=== PATIENT | male | born 1965 | race Caucasian/White ===

== ENCOUNTER 2017-07-21 10:41 | Emergency (ER) | payer MEDICARE ==
[2017-07-21 11:14] VITALS: BP 145/83
== END 2017-07-21 14:30 | disposition left against medical advice (07) ==
LOC: ED 10:41
DX: M79.605 Pain in left leg (principal); Z53.21 Procedure and treatment not carried out due to patient leaving prior to being seen by health care provider

== ENCOUNTER 2017-07-23 17:47 | Emergency (ER) | payer SELFPAY ==
[2017-07-23 18:26] VITALS: BP 137/80
[2017-07-23 18:47] LABS: Hematocrit 37.4 % (35.5-45.6); Hemoglobin 12.1 gm/dl (11.8-15.2); Mean Corpuscular HGB Conc 32 % (32-34); Mean Corpuscular Hemoglobin 29 pg (28-32); Mean Corpuscular Volume 91 fl (84-94); Platelet Count 271 K/mm3 (140-440); Red Blood Count 4.11 M/mm3 (3.65-5.03); Red Cell Distribution Width 14.5 % (13.2-15.2); White Blood Count 6.9 K/mm3 (4.5-11.0)
[2017-07-23 19:05] LABS: Anion Gap 17 mmol/L; BUN/Creatinine Ratio 9; Blood Urea Nitrogen 9 mg/dL (9-20); Calcium 8.4 mg/dL (8.4-10.2); Carbon Dioxide 26 mmol/L (22-30); Glucose 148 mg/dL (75-100); Potassium 4.1 mmol/L (3.6-5.0); Sodium 141 mmol/L (137-145)
--- NOTE | 2017-07-23 19:56 | XRay Report ---
FINAL REPORT EXAM: XR TIBIA FIBULA 2V LT HISTORY: left lower leg wound/osteomyelitis TECHNIQUE: AP and lateral views of the left tibia and fibula. Radiographic marker was placed over the lateral aspect of the upper calf. PRIORS: None. FINDINGS: There is no evidence for acute fracture or dislocation. There is subcutaneous soft tissue swelling in the area of clinical concern involving the lateral aspect of the upper calf. No underlying bony abnormality in this area is seen. No evidence for periosteal reaction, focal lucency, or cortical erosion is present. No air in the soft tissues is seen. No radiopaque foreign bodies are seen. Bony mineralization is normal and joint spaces are maintained. IMPRESSION: No acute bony abnormality noted. Soft tissue swelling in the area of clinical concern overlying the lateral soft tissues of the left calf.
[2017-07-23 20:11] LABS: Bilirubin,Urine NEG (Negative); Blood,Urine NEG (Negative); Ketones,Urine TR mg/dL (Negative); Leukocyte Esterase,Urine NEG (Negative); Mucus,Urine 2+ /HPF; Nitrite,Urine NEG (Negative); Protein,Urine <15 mg/dL mg/dL (Negative)
== END 2017-07-24 20:20 | disposition left against medical advice (07) ==
LOC: ED 17:47
DX: M79.605 Pain in left leg (principal); Z53.21 Procedure and treatment not carried out due to patient leaving prior to being seen by health care provider
CPT/HCPCS: 36415; 80048; 81001; 82140; 85027

== ENCOUNTER 2017-09-11 14:37 | Emergency (ER) | payer SELFPAY ==
[2017-09-11 15:48] VITALS: BP 167/101
[2017-09-11 16:13] LABS: Basophils % (Auto) 0.6 % (0.0-1.8); Eosinophils # (Auto) 0.1 K/mm3 (0.0-0.4); Eosinophils % (Auto) 0.9 % (0.0-4.3); Hematocrit 44.2 % (35.5-45.6); Hemoglobin 14.5 gm/dl (11.8-15.2); Lymphocytes # (Auto) 2.7 K/mm3 (1.2-5.4); Lymphocytes % (Auto) 36.1 % (13.4-35.0); Mean Corpuscular HGB Conc 33 % (32-34); Mean Corpuscular Hemoglobin 29 pg (28-32); Mean Corpuscular Volume 90 fl (84-94); Monocytes # (Auto) 0.4 K/mm3 (0.0-0.8); Monocytes % (Auto) 5.3 % (0.0-7.3); Platelet Count 240 K/mm3 (140-440); Red Blood Count 4.93 M/mm3 (3.65-5.03); Red Cell Distribution Width 14.8 % (13.2-15.2)
[2017-09-11 16:24] LABS: BUN/Creatinine Ratio 14; Blood Urea Nitrogen 13 mg/dL (9-20); Calcium 9.2 mg/dL (8.4-10.2); Hemolysis Index 9
[2017-09-11 16:46] LABS: Bilirubin,Urine NEG (Negative); Blood,Urine SM (Negative); Color,Urine Yellow (Yellow); Mucus,Urine 1+ /HPF; Nitrite,Urine NEG (Negative); Protein,Urine <15 mg/dL mg/dL (Negative); WBC,Urine < 1.0 /HPF (0.0-6.0)
== END 2017-09-12 04:00 | disposition left against medical advice (07) ==
LOC: ED 14:37
DX: R53.1 Weakness (principal); Z53.21 Procedure and treatment not carried out due to patient leaving prior to being seen by health care provider
CPT/HCPCS: 36415; 80048; 81001; 82962; 85025

== ENCOUNTER 2017-09-12 07:54 | Emergency (ER) | payer SELFPAY ==
[2017-09-12 08:04] VITALS: BP 188/105
== END 2017-09-12 08:00 | disposition left against medical advice (07) ==
LOC: ED 07:54
DX: I10 Essential (primary) hypertension (principal); Z53.21 Procedure and treatment not carried out due to patient leaving prior to being seen by health care provider

== ENCOUNTER 2017-09-12 15:04 | Emergency (ER) | payer MEDICARE ==
[2017-09-12 16:01] VITALS: BP 151/90
--- NOTE | 2017-09-12 17:45 | Emergency Department Report ---
ED General Adult HPI - General Chief complaint: Pain General Stated complaint: FLU/HYPERTENSION Source: patient Mode of arrival: Ambulatory Limitations: No Limitations - History of Present Illness Initial comments: 52 year old male presents to ED stating "I would like my blood pressure checked and I need a work release form for my job." patient states that 1 week ago he was sent home for work because he experienced some sweating, bodyaches, loss of appetite and 1 episode of dizziness. patient states he was sent home from work because he boss said that he needed to be cleared for influenza in order to return to work. patient states these symptoms have completely resolved and he has not experienced any of these symptoms for 1 week. patient states he had a physical exam and blood work at his PCP in [facility] 4 months ago and that was normal. patient is stable, neurologically intact and in no acute distress. patient denies headache, altered vision, dizziness, N/V, fever, bodyaches, chest pain, abdominal pain, dysuria, hematuria during today's visit. patient is alert and oriented to person place time and self. -: Gradual, week(s) (1 week ago, symptoms now resolved) Radiation: non-radiation Quality: aching, other Consistency: now resolved Improves with: none Worsens with: none Associated Symptoms: fever/chills, loss of appetite, other (all symptoms resolved 1 week ago per patient ). denies: confusion, chest pain, cough, diaphoresis, malaise, nausea/vomiting, rash, seizure, shortness of breath, syncope, weakness Treatments Prior to Arrival: none - Related Data Allergies Allergy/AdvReac Type Severity Reaction Status Date / Time seafood AdvReac Hives Uncoded 07/21/17 11:16 ED Review of Systems ROS: Stated complaint: FLU/HYPERTENSION Other details as noted in HPI Constitutional: chills, diaphoresis. denies: fever Eyes: denies: eye pain, eye discharge, vision change ENT: denies: ear pain, throat pain Respiratory: denies: cough, shortness of breath, wheezing Cardiovascular: denies: chest pain, palpitations Endocrine: no symptoms reported Gastrointestinal: denies: abdominal pain, nausea, diarrhea Genitourinary: denies: urgency, dysuria Musculoskeletal: myalgia. denies: back pain, joint swelling, arthralgia Skin: denies: rash, lesions Neurological: vertigo. denies: headache, weakness, paresthesias Psychiatric: denies: anxiety, depression Hematological/Lymphatic: denies: easy bleeding, easy bruising ED Past Medical Hx - Past Medical History Previous Medical History?: Yes Hx Hypertension: Yes Hx Asthma: Yes - Surgical History Past Surgical History?: Yes Additional Surgical History: right shoulder, left knee arthroscop - Social History Smoking Status: Current Every Day Smoker Substance Use Type: Alcohol, Marijuana, Prescribed ED Physical Exam - General Limitations: No Limitations General appearance: alert, in no apparent distress - Head Head exam: Present: atraumatic, normocephalic - Eye Eye exam: Present: normal appearance, PERRL, EOMI Pupils: Present: normal accommodation - ENT ENT exam: Present: normal exam, mucous membranes moist - Neck Neck exam: Present: normal inspection, full ROM - Respiratory Respiratory exam: Present: normal lung sounds bilaterally. Absent: respiratory distress, wheezes, rales, rhonchi - Cardiovascular Cardiovascular Exam: Present: regular rate, normal rhythm. Absent: systolic murmur, diastolic murmur, rubs, gallop - GI/Abdominal GI/Abdominal exam: Present: soft, normal bowel sounds. Absent: distended, tenderness, guarding, rebound, rigid - Rectal Rectal exam: Present: deferred - Extremities Exam Extremities exam: Present: normal inspection, full ROM - Back Exam Back exam: Present: normal inspection, full ROM - Neurological Exam Neurological exam: Present: alert, oriented X3, normal gait. Absent: altered, abnormal gait - Psychiatric Psychiatric exam: Present: normal affect, normal mood - Skin Skin exam: Present: warm, dry, intact, normal color. Absent: cyanosis, diaphoretic ED Course Vital Signs 09/12/17 15:57 Temperature 98.4 F Pulse Rate 70 Respiratory 18 Rate Blood Pressure 151/90 O2 Sat by Pulse 98 Oximetry ED Medical Decision Making - Medical Decision Making 52 year old male presents to ED stating "I would like a work note so I can go back to work." Patient states he has medical history solely of HTN and asthma and would also like his BP checked during ED visit. patient has non emergent blood pressure of 151/90 during ED visit. patient denies any symptoms of headache, dizziness, sweating, fatigue, weakness, chest pain, abdominal pain, N/ V, fever etc and has normal physical exam during ED visit. patient states he feels good and he is ready to go home. patient is stable, neurologically intact and in no acute distress. patient is ambulatory with normal observed gait. patient agrees and understands that he needs to be evaluated by PCP for a medical clearance form and agrees and understands to return to ED immediately if any symptoms return. Critical care attestation.: If time is entered above; I have spent that time in minutes in the direct care of this critically ill patient, excluding procedure time. ED Disposition Clinical Impression: General medical exam Disposition: DC-01 TO HOME OR SELFCARE Is pt being admited?: No Does the pt Need Aspirin: No Condition: Stable Instructions: Normal Exam (ED) Referrals: PRIMARY CARE, [Primary Care Provider] - 2-3 Days
== END 2017-09-12 18:05 | disposition home or self-care (01) ==
LOC: ED 15:04
DX: M79.1 Myalgia (principal); R42 Dizziness and giddiness
CPT/HCPCS: 99282